=== PATIENT | female | born 2005 | race Caucasian/White ===

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

== ENCOUNTER 2023-12-19 23:01 | Outpatient (REF) | payer BC, SELFPAY ==
[2023-12-19 22:55] LABS: ALT 17 U/L (14-59); AST 14 U/L (15-37); Albumin 3.2 g/dL (3.4-5.0); Alkaline Phosphatase 110 U/L (46-116); Anion Gap 10.5 mmol/L (3-11); BUN 12 mg/dL (7-18); CO2 24.5 mmol/L (21.0-32.0); CREATININE 0.6 mg/dL (0.55-1.02); Calcium 8.9 mg/dL (8.5-10.1); Calculated LDL 65 mg/dL (<100); Chloride 106 mmol/L (98-107); Cholesterol 153 mg/dL (<200); Glucose 116 mg/dL (74-106); HDL Cholesterol 67 mg/dL (40-60); Potassium 3.8 mmol/L (3.5-5.1); Sodium 141 mmol/L (136-145); Total Protein 6.8 g/dL (6.4-8.2); Triglyceride 106 mg/dL (<150); Vitamin D 25 Total 13.3 ng/mL (30-100)
[2023-12-19 23:04] LABS: PHOSPHORUS 2.4 mg/dL (2.6-4.7)
[2023-12-19 23:21] LABS: Hemoglobin A1C 5.1 % (<5.7)
[2023-12-20 18:02] LABS: Parathyroid Hormone,Intact 117 pg/mL (19-88)
== END 2023-12-19 23:02 | disposition home or self-care (01) ==
LOC: NCHCN 23:01
PROVIDERS: PCP Naturopath; Visit Provider Family Medicine
DX: I10 Essential (primary) hypertension (principal); E83.31 Familial hypophosphatemia; R73.09 Other abnormal glucose
CPT/HCPCS: 80053; 80061; 82306; 83036; 83970; 84100

== ENCOUNTER 2023-12-21 21:04 | Emergency (ER) | payer BC, SELFPAY ==
[2023-12-21] VITALS (13 sets, daily range): BP systolic 149–181; BP diastolic 85–119; PULSE 86–110; RESP 18–24; TEMP 36.6; O2SAT 97–100
--- NOTE | 2023-12-21 21:15 | RT.EKG_ITS ---
APPROVED REPORT Exam: Resting ECG Reason for Exam: htn Patient Location: E HR:82 bpm ECG Measurements Heart Rate 82 AXIS VT 123 P 55 QRSd 88 QRS 63 QT 372 T 45 QTc 434 Conclusion Sinus rhythm 82 normal axis no stemi
--- NOTE | 2023-12-21 21:26 | ED.GENADUL_ITS ---
Discharge Plan Disposition Patient Disposition: Home Discharge Details Clinical Impression: Hypertension Primary Care Provider: Leola Henry ED Provider: Patrick Mcdonald Home Meds and New Rx's Prescriptions: New amlodipine [Norvasc] 5 mg tablet 5 mg PO DAILY Qty: 30 1RF No Action norgestimate-ethinyl estradiol [Tri-Linyah] 0.18/0.215/0.25 mg-35 mcg (28) tablet 1 tab PO DAILY Discharge Instructions Instructions: High Blood Pressure ED Additional Instructions: * START BLOOD PRESSURE MEDICATION DAILY * CONTINUE TO KEEP LOG OF YOUR BLOOD PRESSURE * FOLLOW UP WITH YOUR PCP NEXT WEEK FOR RE-EVALUATION HPI General Date/Time Provider Initiated Documentation: 12/21/23 21:18 . Limitations to Documentation: no limitations . Information obtained by: patient . HPI Narrative: 18-year-old female without significant past medical history presents for evaluation of elevated blood pressure. She states that she has been working with her primary care provider for the last few weeks and has been keeping a log of her blood pressure at home. She reports that over the last few days it has been in the 160s with a diastolic pressure over 100. She states that this evening she started to feel bad have some very mild headache. Not acute onset. Reports that her ED this evening her blood pressure was over 180. Related Data Home Medications ?Medication ?Instructions ?Recorded ?Confirmed norgestimate-ethinyl estradiol 1 tab PO DAILY 06/21/22 12/21/23 0.18 mg/0.215mg/0.25mg-35 mcg(28)tablet (Tri-Linyah) amlodipine 5 mg tablet (Norvasc) 5 mg PO DAILY #30 tabs 12/21/23 Previous Rx's ?Medication ?Instructions ?Recorded amlodipine 5 mg tablet (Norvasc) 5 mg PO DAILY #30 tabs 12/21/23 Allergies Allergy/AdvReac Type Severity Reaction Status Date / Time grass pollen-perennial rye, Allergy Mild Itching Unverified 12/21/23 21:11 standar (grass poll-perennial rye,std) General Stated Complaint: Headache GUILLERMO: 3 Exam Narrative Exam Narrative: Review of Systems: All systems reviewed & are unremarkable except as noted in HPI and below Well-developed, no acute distress NCAT RRR NO MURMUR Unlabored respiratory effort CTAB Nondistended abdomen SOFT NT Extremities w/o edema no focal neurologic deficits, good strength throughout, normal gait Appropriate mood and affect Course Vital Signs Vital signs: Vital Signs Temperature 36.6 C 12/21/23 21:07 Pulse 86 12/21/23 21:07 Respiratory Rate 20 12/21/23 21:07 Blood Pressure 181/114 H 12/21/23 21:07 Pulse Oximetry 99 12/21/23 21:07 Temperature 36.6 C 12/21/23 21:10 Temperature Source Tympanic 12/21/23 21:07 Pulse 86 12/21/23 21:10 Respiratory Rate 20 12/21/23 21:10 Respiratory Effort Normal 12/21/23 21:10 Blood Pressure 181/114 H 12/21/23 21:10 Blood Pressure Position Sitting 12/21/23 21:10 Pulse Oximetry 99 12/21/23 21:10 Oxygen Delivery Method Room Air 12/21/23 21:10 Oxygen Flow Rate 0 12/21/23 21:07 Medical Decision Making Emergent evaluation of elevated BP. patient has no formal history and has been keeping a log for her PCP but it seems based on this log that her blood pressure has been elevated for quite some time. Presents with significantly elevated systolic as well as diastolic. Mild end organ symptoms. Doubt acute intracranial process given the benign nature of headache. EKG reviewed and interpreted: Sinus 82 normal axis no STEMI. Patient given medication for blood pressure lowering and she had a nice response. Blood work obtained and there is no evidence of endorgan damage. No elevated troponin, no proteinuria. Will start daily Norvasc. Instructed to keep log and follow-up with PCP. Return precautions advised Quality:SDOH Health Related Social Needs: No Data to Display PFSH All Active Problems Hypertension (Chronic) Acute serous otitis media of left ear without rupture (Acute) Recurrent otitis media of both ears (Acute) Acute pharyngitis (Acute) Social History Smoking/Tobacco Use Status: Never Smoking risk assessment performed?: Yes Alcohol Intake: never Drug use: Never Do you feel safe at home: Yes Do you feel safe in your relationship?: Yes
[2023-12-21] MEDS: hydrALAZINE 20 MG/ML VIAL 5 MG IVP (21:47)
[2023-12-21] MEDS: amLODIPine 5 MG TAB PO (21:47)
[2023-12-21 21:53] LABS: Abs Immature Grans 0.04 10^3/uL (0.0-0.06); Absolute Basophil Count 0.05 10^3/uL (0.0-0.2); Absolute Eosinophil Count 0.23 10^3/uL (0.0-0.7); Absolute Monocyte Count 0.64 10^3/uL (0.1-0.8); Basophils % 0.4 %; HCT 37.3 % (36.0-46.0); HGB 12.2 g/dL (11.2-15.7); Immature Grans % 0.3 %; Lymphocytes % 28.8 %; MCH 28.8 pg (27.0-33.0); MCHC 32.7 % (32.0-36.0); MCV 88 fL (80-95); MPV 10.7 fL (8.0-11.0); Monocytes % 5.6 %; Neutrophils % 62.9 %; Platelet Count 325 10^3/uL (130-400); RBC 4.24 10^6/uL (3.93-5.22); RDW 13.8 % (11.7-14.6); RDW-SD 44.4 fL; WBC 11.44 10^3/uL (4.4-10.8)
[2023-12-21 21:54] LABS: Absolute Lymphocyte Count 3.29 10^3/uL (1.2-3.4)
--- NOTE | 2023-12-21 22:05 | NUR.NOTE ---
Nursing Note:report and transfer of care given to Sissy Lei RN at this time
[2023-12-21 22:20] LABS: ALT 16 U/L (14-59); AST 12 U/L (15-37); Albumin 3.2 g/dL (3.4-5.0); Alkaline Phosphatase 110 U/L (46-116); Anion Gap 10.6 mmol/L (3-11); BUN 8 mg/dL (7-18); Bilirubin, Total 0.15 mg/dL (0.2-1.0); CO2 24.4 mmol/L (21.0-32.0); CREATININE 0.7 mg/dL (0.55-1.02); Calcium 9.2 mg/dL (8.5-10.1); Chloride 106 mmol/L (98-107); Glucose 115 mg/dL (74-106); Potassium 3.5 mmol/L (3.5-5.1); Sodium 141 mmol/L (136-145); Total Protein 7.4 g/dL (6.4-8.2); Troponin I 9 ng/L (<or=51)
[2023-12-21 22:50] LABS: Bilirubin Negative (Negative); Blood Negative (Negative); Clarity Clear (Clear); Glucose Negative (Negative); Ketones Negative (Negative); Leukocyte Esterase Trace (Negative); Nitrite Negative (Negative); Specific Gravity <= 1.005 (1.005-1.025); Urobilinogen 0.2 mg/dL (Up to 0.2)
[2023-12-21 23:01] LABS: Bacteria Few HPF (Negative); C & S Indicated? No; Crystals Negative HPF (Negative); Epithelial Cells Many HPF (Negative); Mucus Negative (Negative); RBC Negative HPF (0-2)
== END 2023-12-21 23:12 | disposition home or self-care (01) ==
PROVIDERS: Emergency Provider Emergency Medicine; PCP Naturopath
DX: R51.9 Headache, unspecified (principal); I10 Essential (primary) hypertension
CPT/HCPCS: 80053; 93005; 96374; 99284; 81003; 81015; 84484; 85025; 93010; J0360

== ENCOUNTER 2024-04-16 11:38 | Outpatient (REF) | payer BC, SELFPAY ==
[2024-04-16 14:30] LABS: Anion Gap 8.9 mmol/L (3-11); BUN 12 mg/dL (7-18); CO2 26.1 mmol/L (21.0-32.0); CREATININE 0.6 mg/dL (0.55-1.02); Calcium 8.9 mg/dL (8.5-10.1); Chloride 108 mmol/L (98-107); Glucose 96 mg/dL (74-106); Potassium 4.2 mmol/L (3.5-5.1); Sodium 143 mmol/L (136-145)
== END 2024-04-16 11:39 | disposition home or self-care (01) ==
LOC: NCHCN 11:38
PROVIDERS: PCP Family Medicine; Visit Provider Family Medicine
DX: I10 Essential (primary) hypertension (principal)
CPT/HCPCS: 80048

== ENCOUNTER 2024-06-16 11:32 | Emergency (ER) | payer BC, SELFPAY ==
[2024-06-16 11:34] VITALS: BP 148/90; PULSE 102; RESP 18; TEMP 36.2; O2SAT 96
[2024-06-16 11:37] VITALS: BP 148/90; PULSE 102; RESP 18; TEMP 36.2; O2SAT 96
--- NOTE | 2024-06-16 12:00 | ED.GENADUL_ITS ---
Discharge Plan Disposition Patient Disposition: Home Condition: Stable Discharge Details Clinical Impression: Otitis media Primary Care Provider: Dorothy Sim ED Provider: Mojgan Abernathy Home Meds and New Rx's Prescriptions: New amoxicillin-pot clavulanate 875-125 mg tablet 1 tab PO BID 10 Days Qty: 20 0RF No Action norgestimate-ethinyl estradiol [Tri-Linyah] 0.18/0.215/0.25 mg-35 mcg (28) tablet 1 tab PO DAILY amlodipine [Norvasc] 5 mg tablet 5 mg PO DAILY Qty: 30 1RF Discharge Instructions Instructions: Ear Infection ED Additional Instructions: Please take the antibiotic twice daily with yogurt or a probiotic as directed. Follow up with primary care provider/ENT in 3-5 or 1 to 2 weeks days. Return to ED sooner if any worsening or concerns. Please take Tylenol or Ibuprofen with food every 4-6 hours as needed for pain and swelling. May take ugln-rcl-[id number] cough and cold medicine. Referrals: Dorothy Sim [Primary Care Provider] - 3 days Dajuan Grimes MD [ [facility] STAFF PHYSICIAN] - 2 weeks Discharge Data Discharge Date/Time-TO BE ENTERED AT DEPARTURE: 06/16/24 12:51 HPI General Mode of arrival: ambulatory . Date/Time Provider Initiated Documentation: 06/16/24 11:56 . Limitations to Documentation: no limitations . Information obtained by: patient, RN notes reviewed and old records reviewed . HPI Narrative: 38-year-old female presents with dizziness, pain in both ears and itchiness for the last few days also endorses sore throat and cough. She reports frequent ear infections, and URI symptoms. No other complaints or associated symptoms. Related Data Home Medications ?Medication ?Instructions ?Recorded ?Confirmed norgestimate-ethinyl estradiol 1 tab PO DAILY 06/21/22 06/16/24 0.18mg/0.215mg/0.25mg-0.035mg(28)tablet (Tri-Linyah) amlodipine 5 mg tablet (Norvasc) 5 mg PO DAILY #30 tabs 12/21/23 06/16/24 amoxicillin 875 mg-potassium 1 tab PO BID 10 days #20 tabs 06/16/24 clavulanate 125 mg tablet Previous Rx's ?Medication ?Instructions ?Recorded amlodipine 5 mg tablet (Norvasc) 5 mg PO DAILY #30 tabs 12/21/23 amoxicillin 875 mg-potassium 1 tab PO BID 10 days #20 tabs 06/16/24 clavulanate 125 mg tablet Allergies Allergy/AdvReac Type Severity Reaction Status Date / Time grass pollen-perennial rye, Allergy Mild Itching Unverified 06/16/24 11:36 standar (grass poll-perennial rye,std) General Stated Complaint: EarProblem GUILLERMO: 3 Review of Systems ENT Ears, Nose, Mouth, and Throat: Reports as per HPI, Reports otalgia and Reports sore throat Exam HENMT Head: normal to inspection Ears: TM normal on the left and TM abnormal bulging and erythematous General nose exam: external nose normal and mucous membranes and turbinates abnormal boggy Face and sinus: normal facial exam Mouth: oral mucosae normal, lip normal, moist mucous membranes and no muffled voice Throat: posterior oropharynx abnormal erythema Resp Effort & Inspection: normal respiratory effort and able to speak in complete sentences Auscultation: clear to auscultation bilaterally Cardio Rate: regular rate Rhythm: regular rhythm Heart Sounds: S1 normal and S2 normal Course Vital Signs Vital signs: Vital Signs Temperature 36.2 C L 06/16/24 11:34 Pulse 102 H 06/16/24 11:34 Respiratory Rate 18 06/16/24 11:34 Blood Pressure 148/90 H 06/16/24 11:34 Pulse Oximetry 96 06/16/24 11:34 Temperature 36.2 C L 06/16/24 11:37 Pulse 102 H 06/16/24 11:37 Respiratory Rate 18 06/16/24 11:37 Blood Pressure 148/90 H 06/16/24 11:37 Pulse Oximetry 96 06/16/24 11:37 Medical Decision Making 38-year-old female presents with dizziness, pain in both ears and itchiness for the last few days also endorses sore throat and cough. She reports frequent ear infections, and URI symptoms. No other complaints or associated symptoms. Flu and Covid swab ordered, will give Augmentin for recurrent otitis media. Negative covid/Flu POC. Patient discharged in hemodynamically stable condition. This text was generated using [employer]ation system, please disregard any oddities of phrase or misspellings. Medical Records Medical records reviewed: Yes I reviewed the patient's medical records. Quality:SDOH Health Related Social Needs: No Data to Display PFSH All Active Problems (Updated 06/16/24 @ 12:06 by Mojgan Abernathy NP) Otitis media (Acute) Acute serous otitis media of left ear without rupture (Acute) Recurrent otitis media of both ears (Acute) Acute pharyngitis (Acute) Social History Smoking/Tobacco Use Status: Current every day Tobacco Type: e-cigarettes Smoking risk assessment performed?: Yes Alcohol Intake: never Drug use: Never Substance use type: does not use Do you feel safe at home: Yes Do you feel safe in your relationship?: Yes
[2024-06-16] MEDS: Amoxicillin 875/Clav. 125 TAB PO (12:12)
[2024-06-16 12:50] VITALS: BP 148/90; PULSE 102; RESP 18; TEMP 36.2; O2SAT 96
== END 2024-06-16 12:51 | disposition home or self-care (01) ==
PROVIDERS: Emergency Provider Registered Nurse Emergency; PCP Family Medicine
DX: H66.93 Otitis media, unspecified, bilateral (principal); R42 Dizziness and giddiness
CPT/HCPCS: 99283 ×2

== ENCOUNTER 2024-06-30 21:42 | Emergency (ER) | payer BC, SELFPAY ==
--- NOTE | 2024-06-30 21:45 | DI.RAD_ITS ---
Exam(s) XR HAND LT COMPLETE EXAM: XR HAND LT COMPLETE CLINICAL HISTORY: +swelling to 2nd and 3rd metacarpals. TECHNIQUE: 2D digital imaging was performed. Three views. COMPARISON: No exams were available for comparison FINDINGS: BONES: No acute fracture is present. No bony destructive lesion is seen. JOINTS: No dislocation present. SOFT TISSUE: Swelling at the dorsum of the hand. No foreign body. IMPRESSION: Soft tissue swelling. No acute bony abnormality. The preliminary [facility] report was reviewed. DATA REPOSITORY: RADIATION DOSE DELIVERED:
[2024-06-30 21:49] VITALS: BP 141/92; PULSE 110; RESP 16; TEMP 36.6; O2SAT 98
--- NOTE | 2024-06-30 21:59 | ED.GENADUL_ITS ---
Discharge Plan Disposition Patient Disposition: Home Discharge Details Clinical Impression: Contusion of left hand Primary Care Provider: Dorothy Sim ED Provider: Sandra Wilson Home Meds and New Rx's Prescriptions: No Action norgestimate-ethinyl estradiol [Tri-Linyah] 0.18/0.215/0.25 mg-35 mcg (28) tablet 1 tab PO DAILY amlodipine [Norvasc] 5 mg tablet 5 mg PO DAILY Qty: 30 1RF calcitriol 0.25 mcg capsule 0.25 mcg PO DAILY K-Phos Original 500 mg tablet,soluble 500 mg PO DAILY Patient Comments: TAKE ONE TABLET BY MOUTH EVERY DAY hydrochlorothiazide 12.5 mg tablet 12.5 mg PO DAILY Patient Comments: TAKE ONE TABLET BY MOUTH EVERY DAY Discharge Instructions Additional Instructions: There was no obvious sign of fracture on x-ray. The radiologist will read this, we can call you with the results if there is any abnormal finding. You have likely bruised your hand and can expect to the swelling to persist for the next couple of days. Elevate your hand above heart level. Apply ice for 15 to 20 minutes at a time. For discomfort you may use ibuprofen 600 mg every 8 hours or ibuprofen 650 mg every 6 hours. Return to emergency care if you develop new color change to your fingers, inability to move your fingers/numbness to your fingers, or if you are very worried and need to be rechecked again immediately Referrals: Dorothy Sim [Primary Care Provider] - HPI General Date/Time Provider Initiated Documentation: 06/30/24 21:51 . HPI Narrative: Jeanette is 18-year-old female who presents for evaluation of left hand injury. Accompanied by boyfriend. Left hand caught in car door at 0730 hours, resulting in significant swelling. No distal numbness/tingling. Denies wrist or elbow pain. Denies other injuries. No medication taken, applying ice. No prior history of injury to the same hand. Right-handed. Past medical history significant for hypertension, currently on medication. Related Data Home Medications ?Medication ?Instructions ?Recorded ?Confirmed norgestimate-ethinyl estradiol 1 tab PO DAILY 06/21/22 06/30/24 0.18mg/0.215mg/0.25mg-0.035mg(28)tablet (Tri-Linyah) amlodipine 5 mg tablet (Norvasc) 5 mg PO DAILY #30 tabs 12/21/23 06/30/24 calcitriol 0.25 mcg capsule 0.25 mcg PO DAILY 06/30/24 06/30/24 hydrochlorothiazide 12.5 mg tablet 12.5 mg PO DAILY 06/30/24 06/30/24 potassium phosphate, monobasic 500 500 mg PO DAILY 06/30/24 06/30/24 mg soluble tablet (K-Phos Original) Previous Rx's ?Medication ?Instructions ?Recorded amlodipine 5 mg tablet (Norvasc) 5 mg PO DAILY #30 tabs 12/21/23 Allergies Allergy/AdvReac Type Severity Reaction Status Date / Time grass pollen-perennial rye, Allergy Mild Itching Unverified 06/30/24 21:53 standar (grass poll-perennial rye,std) General Stated Complaint: Orthopedic GUILLERMO: 4 Exam Narrative Exam Narrative: General Appearance: Normal. Patient is alert and oriented, no acute distress. Vital signs: Within normal limits. Back, Musculoskeletal: Full range of motion in elbow and wrist without pain. Extremities: Fingers can wiggle and make a fist. Significant swelling in left hand. Sensation grossly intact to fingers, brisk cap refill. Faint ecchymosis to dorsum of left hand over 2nd/3rd/fourth metacarpals. No obvious deformity, abrasions, or skin tears. Skin: Warm and dry, no rash. Psychiatric: Normal. Course Vital Signs Vital signs: Vital Signs Temperature 36.6 C 06/30/24 21:49 Pulse 110 H 06/30/24 21:49 Respiratory Rate 16 06/30/24 21:49 Blood Pressure 141/92 H 06/30/24 21:49 Pulse Oximetry 98 06/30/24 21:49 Temperature 36.6 C 06/30/24 21:49 Temperature Source Oral 06/30/24 21:49 Pulse 110 H 06/30/24 21:49 Respiratory Rate 16 06/30/24 21:49 Blood Pressure 141/92 H 06/30/24 21:49 Pulse Oximetry 98 06/30/24 21:49 Oxygen Delivery Method Room Air 06/30/24 21:49 Oxygen Flow Rate 0 06/30/24 21:49 Pain Level 4 06/30/24 21:56 Medical Decision Making Initial Assessment: 18-year-old female with left hand injury after slamming it in a car door. ED Course: - Physical exam showed swelling, low suspicion for fracture. - Ordered x-ray to rule out fracture. -Tylenol given while in the ED for discomfort. - Advised [id number]-isy-[id number] pain relievers (Tylenol, ibuprofen). - Provided Dhruv wrap for support and compression Final Assessment: Swelling in the left hand with low suspicion for fracture based on physical exam. X-ray ordered to confirm, I independently interpreted x- ray and did not visualize any obvious fracture, this was confirmed by radiologist. Pain management with myph-cjf-movgovt medications advised. Patient was noted to have tachycardia, but reports that she is in discomfort and just wants to go home to rest. Declines additional pain medications. Clinical Impression: - Left hand contusion Disposition: - Discharge; recommend follow-up with PCP as needed. MDM Components Evaluation: - Number of Differential Diagnoses or Management Options: Low suspicion for fracture - Amount and Complexity of Data Reviewed: Physical exam, x-ray ordered - Risk of Complication and Morbidity or Mortality: Low risk based on current assessment and planned management Patient consented to the use of PAULA Imaging Data Radiologic Study: Radiologist's impression: PROCEDURE INFORMATION: Exam: XR Left Hand Exam date and time: 06/30/2024 10:15 PM Age: 18 years old Clinical indication: Pain; Hand; Left; +swelling to 2nd and 3rd metacarpals TECHNIQUE: Imaging protocol: Radiologic exam of the left hand. Views: 3 or more views. COMPARISON: No relevant prior studies available. FINDINGS: Bones/joints: Three views of the left hand reveal no acute fracture, dislocation, or other osseous abnormality. Soft tissues: There is apparent soft tissue swelling in the proximal aspect of the 2nd, 3rd, and 4th fingers. No radiopaque foreign body is seen. IMPRESSION: Soft tissue swelling in the fingers. No acute fracture or other osseous abnormality demonstrated. Quality:SDOH Health Related Social Needs: No Data to Display PFSH All Active Problems (Updated 06/30/24 @ 22:33 by Sandra Cardona) Contusion of left hand (Acute) Otitis media (Acute) Acute serous otitis media of left ear without rupture (Acute) Recurrent otitis media of both ears (Acute) Acute pharyngitis (Acute) Social History Smoking/Tobacco Use Status: Current every day Tobacco Type: e-cigarettes Smoking risk assessment performed?: Yes Alcohol Intake: never Drug use: Never Substance use type: does not use Do you feel safe at home: Yes Do you feel safe in your relationship?: Yes
[2024-06-30] MEDS: Acetaminophen 325 MG TAB 650 MG PO (22:11)
[2024-06-30 22:43] VITALS: PULSE 100; RESP 16; O2SAT 98
--- NOTE | 2024-06-30 22:58 | DI.VRAD_ITS ---
PROCEDURE INFORMATION: Exam: XR Left Hand Exam date and time: 06/30/2024 10:15 PM Age: 18 years old Clinical indication: Pain; Hand; Left; +swelling to 2nd and 3rd metacarpals TECHNIQUE: Imaging protocol: Radiologic exam of the left hand. Views: 3 or more views. COMPARISON: No relevant prior studies available. FINDINGS: Bones/joints: Three views of the left hand reveal no acute fracture, dislocation, or other osseous abnormality. Soft tissues: There is apparent soft tissue swelling in the proximal aspect of the 2nd, 3rd, and 4th fingers. No radiopaque foreign body is seen. IMPRESSION: Soft tissue swelling in the fingers. No acute fracture or other osseous abnormality demonstrated. Dictated and Authenticated by: Hector Malcolm MD. Orderin Briseida Flores MD
== END 2024-06-30 22:44 | disposition home or self-care (01) ==
PROVIDERS: Emergency Provider Nurse Practitioner Family; PCP Family Medicine
DX: S60.222A Contusion of left hand, initial encounter (principal); I10 Essential (primary) hypertension; F17.290 Nicotine dependence, other tobacco product, uncomplicated; W23.0XXA Caught, crushed, jammed, or pinched between moving objects, initial encounter; Y93.89 Activity, other specified
CPT/HCPCS: 99283; 73130

== ENCOUNTER 2024-09-08 15:37 | Emergency (ER) | payer OTHER, SELFPAY ==
[2024-09-08 15:44] VITALS: BP 123/81; PULSE 76; RESP 16; TEMP 36.9; O2SAT 98
[2024-09-08 15:46] VITALS: BP 123/81; PULSE 76; RESP 16; TEMP 36.9; O2SAT 98
--- NOTE | 2024-09-08 15:54 | W.ED.GENAD ---
Discharge Plan Disposition Patient Disposition: Home Condition: Stable Discharge Details Clinical Impression: Acute streptococcal pharyngitis Primary Care Provider: Dorothy Sim ED Provider: Jackie Myers Home Meds and New Rx's Prescriptions: New penicillin V potassium 500 mg tablet 500 mg PO BID 10 Days Qty: 20 0RF No Action amlodipine [Norvasc] 5 mg tablet 5 mg PO DAILY Qty: 30 1RF calcitriol 0.25 mcg capsule 0.25 mcg PO DAILY K-Phos Original 500 mg tablet,soluble 500 mg PO DAILY Patient Comments: TAKE ONE TABLET BY MOUTH EVERY DAY hydrochlorothiazide 12.5 mg tablet 12.5 mg PO DAILY Patient Comments: TAKE ONE TABLET BY MOUTH EVERY DAY Discharge Instructions Instructions: Strep Throat ED Additional Instructions: You were diagnosed with strep pharyngitis in the emergency department. I sent a prescription for an antibiotic to your preferred pharmacy. Please take this as prescribed. Continue taking gkrd-xux-zwfdetu pain medication as needed. Please follow-up with your primary care doctor but return to the emergency department with any worsening symptoms or any other concerns. While on the antibiotic please consider taking an ihpt-drd-zobputu probiotic for diarrhea prevention. HPI General Date/Time Provider Initiated Documentation: 09/08/24 15:49. HPI Narrative: The patient is a 18-year-old female with a history of hypertension and recurrent pharyngitis who comes the emergency department for sore throat. Reports her throat has been bothering her since . Reports she took over the counter pain medication that has not helping. Reports she last took this, this morning. 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 Reports that 2 weeks ago she did have strep pharyngitis and finished a course of antibiotics and had been well up until as mentioned. Reports otherwise that she feels well. Denies any fever denies any cough or chest pain. Denies abdominal pain, nausea or vomiting. Related Data Home Medications ?Medication ?Instructions ?Recorded ?Confirmed amlodipine 5 mg tablet (Norvasc) 5 mg PO DAILY #30 tabs 12/21/23 09/08/24 calcitriol 0.25 mcg capsule 0.25 mcg PO DAILY 06/30/24 09/08/24 hydrochlorothiazide 12.5 mg tablet 12.5 mg PO DAILY 06/30/24 09/08/24 potassium phosphate, monobasic 500 500 mg PO DAILY 06/30/24 09/08/24 mg soluble tablet (K-Phos Original) penicillin V potassium 500 mg 500 mg PO BID 10 days #20 tabs 09/08/24 tablet Previous Rx's ?Medication ?Instructions ?Recorded amlodipine 5 mg tablet (Norvasc) 5 mg PO DAILY #30 tabs 12/21/23 penicillin V potassium 500 mg 500 mg PO BID 10 days #20 tabs 09/08/24 tablet Allergies Allergy/AdvReac Type Severity Reaction Status Date / Time grass pollen-perennial rye, Allergy Mild Itching Unverified 09/08/24 15:46 standar (grass poll-perennial rye,std) General Stated Complaint: Sorethroat GUILLERMO: 4 Review of Systems Narrative: Review of systems are negative except as mentioned. Exam Narrative Exam Narrative: General appearance: The patient is alert, has no immediate need for airway protection and no signs of toxicity. HEENT: Oral mucosal membranes are moist. The patient has tonsillar swelling and erythema without exudates. She has no uvular deviation. She has no fullness to the soft or hard palate. She has no trismus. No hot potato voice. Neck: Supple, non-tender. No submandibular fullness. Respiratory: There are no retractions. Lungs are clear to auscultation. Cardiovascular: Regular in rate and rhythm. Radial pulses are intact and equal. Gastrointestinal: The abdomen is soft and nondistended with normal bowel sounds. Nontender to palpation throughout. Course Vital Signs Vital signs: Vital Signs Temperature 36.9 C 09/08/24 15:44 Pulse 76 09/08/24 15:44 Respiratory Rate 16 09/08/24 15:44 Blood Pressure 123/81 09/08/24 15:44 Pulse Oximetry 98 09/08/24 15:44 Temperature 36.9 C 09/08/24 15:46 Pulse 76 09/08/24 15:46 Respiratory Rate 16 09/08/24 15:46 Blood Pressure 123/81 09/08/24 15:46 Pulse Oximetry 98 09/08/24 15:46 Medical Decision Making I told the patient plan for repeat strep swab and patient agrees. She declined pain medication currently. The patient strep screen came back positive today. Patient was diagnosed with strep pharyngitis also. I did plan for discharge with prescription for antibiotic to the pharmacy. She is encouraged to continue prnc-vac-mzwaemg pain medication as needed and to follow-up with her primary care also. Return to the emergency department if any worsening symptoms or any other concerns. PFSH All Active Problems (Updated 09/08/24 @ 16:17 by Jackie Myers DO) Acute streptococcal pharyngitis (Acute) Medical History (Updated 09/08/24 @ 16:17 by Jackie Myers DO) Hypertension Recurrent otitis media of both ears Family History (Updated 07/11/24 @ 15:04 by Virgie Garcia RN) Other Diabetes Hyperlipidemia Hypertension Social History Smoking/Tobacco Use Status: Never Smokeless tobacco user: other (vape) Quit status: not considering quitting Smoking risk assessment performed?: Yes Alcohol Intake: never Drug use: Never Substance use type: does not use Do you feel safe at home: Yes Do you feel safe in your relationship?: Yes
== END 2024-09-08 16:25 | disposition home or self-care (01) ==
PROVIDERS: Emergency Provider Emergency Medicine; PCP Family Medicine
DX: J02.0 Streptococcal pharyngitis (principal); I10 Essential (primary) hypertension
CPT/HCPCS: 87880; 99283

== ENCOUNTER 2024-11-15 13:45 | Outpatient (REF) | payer OTHER, SELFPAY ==
[2024-11-15 15:39] LABS: ESR 44 mm/hr (0-20); HCT 37.4 % (36.0-46.0); HGB 12.2 g/dL (11.2-15.7); MCH 29.6 pg (27.0-33.0); MCHC 32.6 % (32.0-36.0); MCV 91 fL (80-95); MPV 10.8 fL (8.0-11.0); Platelet Count 347 10^3/uL (130-400); RBC 4.12 10^6/uL (3.93-5.22); RDW 14.4 % (11.7-14.6); RDW-SD 48.0 fL; WBC 11.66 10^3/uL (4.4-10.8)
[2024-11-15 15:52] LABS: ALT 16 U/L (14-59); AST 16 U/L (15-37); Albumin 3.5 g/dL (3.4-5.0); Alkaline Phosphatase 99 U/L (46-116); Anion Gap 11.6 mmol/L (3-11); BUN 6 mg/dL (7-18); Bilirubin, Total 0.2 mg/dL (0.2-1.0); CO2 24.4 mmol/L (21.0-32.0); Calcium 8.4 mg/dL (8.5-10.1); Chloride 101 mmol/L (98-107); Estimated GFR 130.88 (mL/min/1.73m2); Glucose 75 mg/dL (74-106); Potassium 3.8 mmol/L (3.5-5.1); Sodium 137 mmol/L (136-145); Total Protein 7.6 g/dL (6.4-8.2); Uric Acid 5.4 mg/dL (2.6-6.0)
== END 2024-11-15 13:46 | disposition home or self-care (01) ==
LOC: NCHCN 13:45
PROVIDERS: PCP Family Medicine; Visit Provider Nurse Practitioner Family
DX: M25.572 Pain in left ankle and joints of left foot (principal); I10 Essential (primary) hypertension
CPT/HCPCS: 80053; 85027; 85652; 84550